=== PATIENT | male | born 1965 | race Caucasian/White ===

== ENCOUNTER 2024-10-04 01:37 | Day surgery (SDC) | payer BC, SELFPAY ==
[2024-09-25 09:42] VITALS: BMI 35.6
[2024-10-04 09:41] VITALS: BP 201/111; PULSE 76; RESP 16; TEMP 36.2; O2SAT 99
--- NOTE | 2024-10-04 09:50 | P.PNAN_ITS ---
Anes - Initial Pre Proc Eval Procedure: Operation Date: 10/04/24 11:00 Proposed Procedures p Colonoscopy - Abraham Blackman MD Date/Time: 10/04/24 09:50 Surgeon: Abraham Blackman MD Pre Op Diagnosis: Personal HX colon polyps Patient Data Age: 59 Gender: M Height: 1.8 m Weight: 118.6 kg Last Vital Signs Temp 36.2 C L 10/04/24 09:41 Pulse 76 10/04/24 09:41 Resp 16 10/04/24 09:41 BP 201/111 H 10/04/24 09:41 Pulse Ox 99 10/04/24 09:41 O2 Del Method Room Air 10/04/24 09:41 Allergies Allergy/AdvReac Type Severity Reaction Status Date / Time No Known Allergies Allergy Verified 10/04/24 09:40 Home Medications Medication Instructions Recorded Confirmed Type multivit with minerals-iron 18 1 tablet PO DAILY 09/25/24 10/04/24 History mg-folic ac 400 mcg-vit K 25 mcg tablet (Adults Multivitamin) olmesartan 40 mg tablet 40 mg PO DAILY 09/25/24 10/04/24 History Patient hx anesthesia problems: none Family hx anesthesia problems: none Results Review: All pre-operative results and documents have been reviewed as part of the pre- operative evaluation. [facility] Past Medical History Medical History (Updated 10/03/24 @ 15:36 by Kenny Becerra DO) Hypertension Social History Social History Additional smoking assessment comments: CIGARS OCCASIONALLY Alcohol intake: current Drinks per week: 4 Substance use: current Substance use type: marijuana and other Other substance usage details: EDIBLES Living arrangements: with family Spiritual care concerns: No Anes - Eval Final PreProcedure Day of Procedure 10/04/24 09:50 Patient weight: obese Heart: regular rate and rhythm Lungs: clear to auscultation Airway: Mallampati scale class III Neurological: alert and oriented Last oral intake: >/= 8 hours ASA classification: III Emergent: no Anesthetic plan: proceed Anesthesia type and monitoring: general GIVS and standard monitoring Results Review: All pre-operative results and documents have been reviewed as part of the pre- operative evaluation. Informed Consent: The patient's anesthetic plan and its attendant risks and benefits were discussed with the patient/family/POA. Questions were solicited and answers provided to the satisfaction of the patient/family/POA.
[2024-10-04] MEDS: LACTATED RINGERS 1,000 ML 150 ML IV CONT (09:53)
[2024-10-04 09:54] VITALS: BP 171/92
--- NOTE | 2024-10-04 09:54 | SUR.PREOP ---
Patient's blood pressure was 201/111 upon arrival. Rechecked blood pressure after 10 minutes and blood pressure was 171/92. Dr. Becerra was notified and he is okay with proceeding with procedure.
--- NOTE | 2024-10-04 10:38 | PM.HPGS ---
History of Present Illness History of Present Illness Consent: Risks, benefits, and alternatives have been discussed and questions answered. Patient agrees to proceed with procedure. Chief complaint: Personal HX colon polyps Narrative: Alexander Davis is a 59 year old male with last colonoscopy 5 years ago, father had colon cancer Review of Systems Review of Systems: All systems reviewed & are unremarkable except as noted in HPI and below PMFSH Past Medical History Medical History (Updated 10/04/24 @ 10:39 by Abraham Blackman MD) Family history of colon cancer in father Hypertension Social History Social History Additional smoking assessment comments: CIGARS OCCASIONALLY Alcohol intake: current Drinks per week: 4 Substance use: current Substance use type: marijuana and other Other substance usage details: EDIBLES Living arrangements: with family Spiritual care concerns: No Meds Home Medications and Allergies Home Medications Medication Instructions Recorded Confirmed Type multivit with minerals-iron 18 1 tablet PO DAILY 09/25/24 10/04/24 History mg-folic ac 400 mcg-vit K 25 mcg tablet (Adults Multivitamin) olmesartan 40 mg tablet 40 mg PO DAILY 09/25/24 10/04/24 History Allergies Allergy/AdvReac Type Severity Reaction Status Date / Time No Known Allergies Allergy Verified 10/04/24 09:40 Vital Signs Vital Signs - 24 hr 10/04/24 09:41 10/04/24 09:54 Temperature 97.1 F L Pulse Rate 76 Respiratory Rate 16 Blood Pressure 201/111 H 171/92 H Pulse Oximetry 99 Oxygen Delivery Room Air Exam Const: General: comfortable and no acute distress HENMT: Face/Nose/Sinus: Normal nares present Eyes: General: appearance normal, both eyes and all related structures Neck: Neck: no JVD Resp: Auscultation: clear to auscultation bilaterally Cardio: Rate: regular rate Rhythm: regular rhythm GI: Inspection: non-distended GI Palp: Yes Soft to palpation Skin: General skin exam: normal color Neuro: General: gait normal Speech: normal speech Extrem: General: normal to inspection Psych: Mental Status: mental status grossly normal Assessment and Plan Assessment and plan (1) Family history of colon cancer in father: Code(s): Z80.0 - Family history of malignant neoplasm of digestive organs Status: Acute Assessment and Plan: colonoscopy
[2024-10-04 11:08] VITALS: BP 150/93; PULSE 79; RESP 26; O2SAT 98
[2024-10-04 11:18] VITALS: BP 164/102; PULSE 72; RESP 16; O2SAT 100
[2024-10-04 11:28] VITALS: BP 177/96; PULSE 75; RESP 20; O2SAT 100
== END 2024-10-04 11:46 | disposition home or self-care (01) ==
PROVIDERS: PCP Internal Medicine; Visit Provider Internal Medicine Gastroenterology
PROC: 0DJD8ZZ Inspection of Lower Intestinal Tract, Via Natural or Artificial Opening Endoscopic (ICD-10-PCS; CPT 45378; principal; 2024-10-04 11:00)
DX: Z12.11 Encounter for screening for malignant neoplasm of colon (principal); D12.4 Benign neoplasm of descending colon; K57.30 Diverticulosis of large intestine without perforation or abscess without bleeding; K64.8 Other hemorrhoids; Z80.0 Family history of malignant neoplasm of digestive organs; I10 Essential (primary) hypertension; Z72.0 Tobacco use; F12.90 Cannabis use, unspecified, uncomplicated; E66.9 Obesity, unspecified; Z68.36 Body mass index [BMI] 36.0-36.9, adult
CPT/HCPCS: 45385; 88305; J2704; J7120